=== PATIENT | female | born 1970 | race Asian ===

== ENCOUNTER 2019-03-16 05:40 | Day surgery (SDC) | payer OTHER ==
[~2019-03-16] VITALS: Ht 170.2 cm; Wt 61.4 kg
[2019-03-16] VITALS (30 sets, daily range): BP systolic 89–124; BP diastolic 46–80; PULSE 64–100; RESP 11–25; Ht 170.2 cm; Wt 61.4 kg
[2019-03-16] MEDS ORDERED: GENTAMICIN 160 MG in DEXTROSE 5% 100 ML IVPB ONE (06:00)
[2019-03-16] MEDS ORDERED: LACTATED RINGER'S 1,000 ML IV SCH (06:00)
[2019-03-16] MEDS ORDERED: CEFAZOLIN 2 GM/50 ML (PMX) 50 ML IVPB ONE (06:00)
[2019-03-16] MEDS ORDERED: GENTAMICIN 100 MG/50 ML NS IVPB ONE (06:00)
[2019-03-16] MEDS ORDERED: LIDOCAINE 1%/EPI 30 ML INJ ONE ×2 (07:12→09:20)
[2019-03-16] MEDS ORDERED: BUPIVACAINE 0.25% (MPF) 30 ML INJ ONE ×2 (07:12→09:20)
[2019-03-16] MEDS ORDERED: GENTAMICIN 80 MG INJ ONE ×2 (07:13→08:30)
[2019-03-16] MEDS ORDERED: MUPIROCIN 2% 15 GM CR ONE (07:13)
[2019-03-16] MEDS ORDERED: ROCURONIUM 50 MG INJ ONE (07:30)
[2019-03-16] MEDS ORDERED: LIDOCAINE 2% (SDV) 5 ML INJ ONE (07:30)
[2019-03-16] MEDS ORDERED: SUCCINYLCHOLINE CHLORIDE 100 MG/5 ML SYG IV ONE (07:30)
[2019-03-16] MEDS ORDERED: GLYCOPYRROLATE 0.4 MG INJ ONE (07:30)
[2019-03-16] MEDS ORDERED: MEPERIDINE 100 MG INJ ONE (07:30)
[2019-03-16] MEDS ORDERED: PROPOFOL 20 ML ONE (07:30)
[2019-03-16] MEDS ORDERED: NEOSTIGMINE 3 MG/3 ML SYRINGE ONE (07:30)
[2019-03-16] MEDS ORDERED: CEFAZOLIN 1 GM INJ ONE (07:35)
[2019-03-16] MEDS ORDERED: MIDAZOLAM 1 MG/ML 2 ML INJ ONE (07:35)
[2019-03-16] MEDS ORDERED: METOCLOPRAMIDE 10 MG INJ ONE (07:48)
[2019-03-16] MEDS ORDERED: ONDANSETRON 4 MG INJ ONE (07:48)
[2019-03-16] MEDS ORDERED: morphine 2 MG INJ IV PRN (09:30)
[2019-03-16] MEDS ORDERED: ZOLPIDEM 5 MG TAB PO PRN (09:30)
[2019-03-16] MEDS ORDERED: morphine 4 MG/ML VIAL IV PRN (09:30)
[2019-03-16] MEDS ORDERED: POLYMYXIN/BACITRACIN 1L IRRIG IRR ONE (09:48)
[2019-03-16] MEDS ORDERED: MIDAZOLAM 1 MG/ML 2 ML INJ IV PRN (10:00)
[2019-03-16] MEDS ORDERED: SILVER SULFADIAZINE 1% 25 GM CR TOP SCH (10:00)
[2019-03-16] MEDS ORDERED: ONDANSETRON 4 MG INJ IV PRN (10:00)
[2019-03-16] MEDS ORDERED: MEPERIDINE 25 MG INJ IV PRN (10:00)
[2019-03-16] MEDS ORDERED: FENTAnyl 50 MCG/ML VIAL IV PRN ×3 (10:00)
[2019-03-16] MEDS ORDERED: DIPHENHYDRAMINE 50 MG INJ IV PRN (10:00)
[2019-03-16] MEDS ORDERED: METOCLOPRAMIDE 10 MG INJ IV PRN (10:00)
[2019-03-16] MEDS ORDERED: HYDROmorphONE 1 MG/5 ML IV SYRINGE IV PRN ×3 (10:00)
[2019-03-16] MEDS ORDERED: KETOROLAC 30 MG INJ ONE (10:18)
[2019-03-16] MEDS: D5W-0.45 NACL + KCL 20 MEQ 1,000 ML IV SCH ×2 (18:00→19:27)
[2019-03-16] MEDS: HYDROCODONE/APAP (5/325) TAB PO PRN (18:47)
[2019-03-17] MEDS: HYDROCODONE/APAP (10/325) TAB PO PRN ×2 (00:36→07:41)
[2019-03-17 00:40] VITALS: BP 93/49; PULSE 74; RESP 18
[2019-03-17] MEDS: D5W-0.45 NACL + KCL 20 MEQ 1,000 ML IV SCH (05:28)
[2019-03-17] MEDS ORDERED: PANTOPRAZOLE 40 MG INJ IV SCH (06:00)
[2019-03-17 07:37] VITALS: BP 112/63; PULSE 90; RESP 18
[2019-03-17] MEDS: HYDROCODONE/APAP (5/325) TAB PO PRN (11:03)
== END 2019-03-17 11:26 | disposition home or self-care (01) ==
LOC: SDS 05:40 → REC 09:32 → UNDOADMIN 09:32 → MS1 09:37 → REC 17:49 → SDS 03-17 11:26
PROVIDERS: ATTEND Surgery
DX: C50.211 Malignant neoplasm of upper-inner quadrant of right female breast (principal); N64.89 Other specified disorders of breast
CPT/HCPCS: 15777; 19307; 19357; 80053; 85025; 88309; C9113; J0690; J1170; J1580; J1885; J2175; J2250; J2405; J2765; J3010; J3480; Z7512; Z7610; 88341; 88342; J2710